=== PATIENT | male | born 1990 | race Two or more races ===

== ENCOUNTER 2018-02-04 20:37 | Emergency (ER) | payer MEDICAID ==
[~2018-02-04] VITALS: Ht 175.3 cm; Wt 86.2 kg
--- NOTE | 2018-02-04 20:52 | NUR ---
PT C/O INTERMITTENT HEADACHES X5 MONTHS, STATING IT STARTED AFTER HE STOPPED TAKING IRON SUPPLEMENTS. HX OF ANEMIA AND MIGRAINES. STATES HE FEELS MORE NAUSEATED THAN USUAL, BUT DENIES EMESIS.
--- NOTE | 2018-02-04 21:08 | NUR ---
DR NANDO HERNANDEZ MD AT BEDSIDE FOR MSE.
--- NOTE | 2018-02-04 21:29 | NUR ---
PT TAKEN VIA WHEELCHAIR TO CT. NO DISTRESS NOTED.
[2018-02-04 21:45] LABS: BASOPHILS # (AUTO) 0.1 K/uL (0.0-8.0); BASOPHILS % (AUTO) 1.2 % (0.0-2.0); EOSINOPHILS # (AUTO) 0.2 K/uL (0.0-0.7); EOSINOPHILS % (AUTO) 2.5 % (0.0-7.0); HEMATOCRIT 33.9 % (36.7-47.1); LYMPHOCYTES # (AUTO) 2.1 K/uL (20.0-40.0); LYMPHOCYTES % (AUTO) 27.3 % (20.5-51.5); MEAN CORPUSCULAR HEMOGLOBIN 22.3 uug (23.8-33.4); MEAN CORPUSCULAR HGB CONC 33 g/dL (32.5-36.3); MEAN CORPUSCULAR VOLUME 68.4 fL (73.0-96.2); MONOCYTES # (AUTO) 0.6 K/uL (2.0-10.0); MONOCYTES % (AUTO) 7.5 % (0.0-11.0); NEUTROPHILS # (AUTO) 4.7 K/uL (1.8-8.9); NEUTROPHILS % (AUTO) 61.5 % (38.5-71.5); PLATELET COUNT (AUTO) 304 K/uL (152-348); RED BLOOD CELL COUNT(AUTO) 4.96 MIL/uL (4.06-5.63); WHITE BLOOD COUNT (AUTO) 7.6 K/uL (3.6-10.2)
[2018-02-04 21:55] LABS: CARBON DIOXIDE 29 mmol/L (21-32); CHLORIDE 102 mmol/L (98-107); CREATININE 1.1 mg/dL (0.6-1.3); GLUCOSE 96 mg/dL (74-106); POTASSIUM 3.8 mmol/L (3.5-5.1); UREA NITROGEN, BLOOD 17 mg/dL (7-18)
[2018-02-04 22:06] LABS: ALANINE AMINOTRANSFERASE 38 U/L (16-63); ALKALINE PHOSPHATASE 83 U/L (50-136); ASPARTATE AMINOTRANSFERASE 17 U/L (15-37); BILIRUBIN,DIRECT < 0.1 mg/dL (0.0-0.2); BILIRUBIN,TOTAL 0.2 mg/dL (0.2-1.0); TOTAL PROTEIN, SERUM 7.2 g/dL (6.4-8.2)
--- NOTE | 2018-02-04 22:40 | NUR ---
Patient discharged to home in stable conditon. Written and verbal after care instructions given. Patient verbalizes understanding of instructions. Pt states he will go [employer] on the way home, and will follow up with PCP.
[2018-02-04 22:51] VITALS: BP 128/80
== END 2018-02-04 22:52 | disposition home or self-care (01) ==
LOC: ER 20:40
DX: D64.9 Anemia, unspecified (principal); R51 Headache
CPT/HCPCS: 36415; 70450; 84443; 85025; 85730; 86850; 86900; 86901; 93005; A4663

== ENCOUNTER 2018-02-22 23:08 | Emergency (ER) | payer MEDICAID, OTHER ==
[~2018-02-22] VITALS: Ht 175.3 cm; Wt 86.2 kg
--- NOTE | 2018-02-23 01:10 | NUR ---
DR. ORO AT BEDSIDE FOR MSE.
[2018-02-23] MEDS ORDERED: LIDOCAINE HCL 1% 20 ML VIAL IJ ONE (01:30)
[2018-02-23] MEDS ORDERED: TDAP DIPH,PERTUSS,TET VAC/PF 0.5 ML DISP.SYRIN IM ONE ×2 (01:30→02:10)
[2018-02-23] MEDS ORDERED: NEOMY/BACITRA/POLYMYXIN B OINT UD PACKET TP ONE ×2 (01:46→02:00)
[2018-02-23] MEDS ORDERED: HYDROCODONE/APAP 5-325MG TABLET PO ONE (02:00)
[2018-02-23] MEDS ORDERED: CEPHALEXIN MONOHYDRATE 500 MG CAPSULE PO ONE (02:00)
[2018-02-23] MEDS ORDERED: HYDROCODONE/APAP 5-325MG TABLET ONE (02:09)
[2018-02-23] MEDS ORDERED: CEPHALEXIN MONOHYDRATE 500 MG CAPSULE ONE (02:09)
--- NOTE | 2018-02-23 02:18 | NUR ---
XRAY AT BEDSIDE
[2018-02-23 02:36] VITALS: BP 125/74
--- NOTE | 2018-02-23 02:37 | NUR ---
Patient discharged to home in stable conditon. Written and verbal after care instructions given. Patient verbalizes understanding of instructions. Patient left ER and walks in steady gait. Accompanied by pt's girlfriend who will drive.
== END 2018-02-23 02:37 | disposition home or self-care (01) ==
LOC: ER 23:10
DX: S91.202A Unspecified open wound of left great toe with damage to nail, initial encounter (principal); W22.8XXA Striking against or struck by other objects, initial encounter; Y93.89 Activity, other specified; Y92.89 Other specified places as the place of occurrence of the external cause; Y99.8 Other external cause status
CPT/HCPCS: 11730; 73660; 90715; 99284; A4663; J3490 ×2

== ENCOUNTER 2018-02-26 19:47 | Emergency (ER) | payer MEDICAID, OTHER ==
[~2018-02-26] VITALS: Ht 175.3 cm; Wt 86.2 kg
--- NOTE | 2018-02-26 20:04 | NUR ---
Patient walked in to ER c/o wound check. Patient states he was seen in this ER previously for an injury to his left great toe. Patient arrives today for a wound check. To room [id number] at bedside for MSE.
== END 2018-02-26 20:23 | disposition home or self-care (01) ==
LOC: ER 19:50
DX: Z48.00 Encounter for change or removal of nonsurgical wound dressing (principal)
CPT/HCPCS: A4663

== ENCOUNTER 2018-12-17 20:15 | Emergency (ER) | payer MEDICAID, OTHER ==
[~2018-12-17] VITALS: Ht 175.3 cm; Wt 90.7 kg
[2018-12-17 21:15] VITALS: BP 128/71
--- NOTE | 2018-12-17 21:15 | NUR ---
Patient discharged to home in stable conditon. Written and verbal after care instructions given. Patient verbalizes understanding of instructions. Patient ambulated out of ER with stable gait.
== END 2018-12-17 21:19 | disposition home or self-care (01) ==
LOC: ER 20:16
DX: R07.2 Precordial pain (principal); R14.3 Flatulence
CPT/HCPCS: 93005; A4663